=== PATIENT | male | born 1970 | race Caucasian/White ===

== ENCOUNTER 2021-07-06 00:17 | Day surgery (SDC) | payer OTHER, SELFPAY ==
[2021-06-25 12:29] VITALS: BMI 26.4
[2021-07-06 09:08] VITALS: BP 142/99; PULSE 74; RESP 20; TEMP 36.5; O2SAT 97; BMI 26.6
[2021-07-06] MEDS: LACTATED RINGERS 1,000 ML 150 ML IV CONT (09:14)
--- NOTE | 2021-07-06 09:16 | WPDANESEPPF ---
Anes - Initial Pre Proc Eval Procedure: Operation Date: 07/06/21 10:00 Proposed Procedures p Screening Colonoscopy - Mika Lopez MD Date/Time: 07/06/21 09:16 Surgeon: Mika Lopez MD Pre Op Diagnosis: neoplasm screening Patient Data Age: 51 Gender: M Height: 1.8 m Weight: 86.8 kg Last Vital Signs Temp 36.5 C 07/06/21 09:08 Pulse 74 07/06/21 09:08 Resp 20 07/06/21 09:08 BP 142/99 H 07/06/21 09:08 Pulse Ox 97 07/06/21 09:08 Allergies Allergy/AdvReac Type Severity Reaction Status Date / Time allopurinol Allergy Unknown Skin Verified 07/06/21 09:01 Reaction Home Medications Medication Instructions Recorded Confirmed Type colchicine 0.6 mg tablet 0.3 mg PO DAILY #90 tablet 06/11/21 06/25/21 Rx multivit with min-folic acid 1 tablet PO DAILY 06/25/21 06/25/21 History [Adult One Daily Multivitamin] atorvastatin 10 mg tablet See Rx Instructions .ROUTE 07/03/21 07/06/21 Rx .COMPLEX #90 tablet levothyroxine 75 mcg tablet See Rx Instructions .ROUTE 07/03/21 07/06/21 Rx .COMPLEX #90 tablet Patient hx anesthesia problems: none Family hx anesthesia problems: none Results Review: All pre-operative results and documents have been reviewed as part of the pre-operative evaluation. [facility] Surgical History Surgical History H/O umbilical hernia repair History of laparoscopic appendectomy (~01/2019) Family History Family History Father Patient's father is , Onset Age: 64 Family history of cardiovascular disease Acute myocardial infarction Family history of lung cancer Mother Acute myocardial infarction Social History Social History Smoking status: Current some day smoker Tobacco type: smokeless tobacco Smokeless tobacco user: chewing tobacco Alcohol intake: current Drinks per week: 3 Living arrangements: with family Spiritual care concerns: No Anes - Eval Final PreProcedure Day of Procedure 07/06/21 09:16 Patient weight: overweight Heart: regular rate and rhythm Lungs: clear to auscultation Airway: Mallampati scale class 1 Neurological: alert and oriented Last oral intake: >/= 8 hours ASA classification: II Emergent: no Anesthetic plan: proceed Anesthesia type and monitoring: general GIVS and standard monitoring Results Review: All pre-operative results and documents have been reviewed as part of the pre-operative evaluation. Informed Consent: The patient's anesthetic plan and its attendant risks and benefits were discussed with the patient/family/POA. Questions were solicited and answers provided to the satisfaction of the patient/family/POA.
--- NOTE | 2021-07-06 09:31 | WPDGICN ---
Assessment and Plan Assessment and plan (1) Encounter for screening colonoscopy: Code(s): Z12.11 - Encounter for screening for malignant neoplasm of colon Status: Acute Assessment and Plan: Patient presents for screening colonoscopy. Appears to be at average risk for colon polyps. GI Consult Note Consult date/time: 07/06/21 09:31 HPI: Ajay Saavedra is a 51 year old male Presents for neoplasia screening. Patient's current weight appetite and bowel movements are normal. Patient denies abdominal pain. He has had no blood in his stools. Family history is significant a daughter has Crohn's disease. There is no family history of colon polyps. Review of Systems Review of Systems: All systems reviewed & are unremarkable except as noted in HPI and below PMFSH Surgical History Surgical History H/O umbilical hernia repair History of laparoscopic appendectomy (~01/2019) Family History Family History Father Patient's father is , Onset Age: 64 Family history of cardiovascular disease Acute myocardial infarction Family history of lung cancer Mother Acute myocardial infarction Social History Social History Smoking status: Current some day smoker Tobacco type: smokeless tobacco Smokeless tobacco user: chewing tobacco Alcohol intake: current Drinks per week: 3 Living arrangements: with family Spiritual care concerns: No Meds Home Medications and Allergies Home Medications Medication Instructions Recorded Confirmed Type colchicine 0.6 mg tablet 0.3 mg PO DAILY #90 tablet 06/11/21 06/25/21 Rx multivit with min-folic acid 1 tablet PO DAILY 06/25/21 06/25/21 History [Adult One Daily Multivitamin] atorvastatin 10 mg tablet See Rx Instructions .ROUTE 07/03/21 07/06/21 Rx .COMPLEX #90 tablet levothyroxine 75 mcg tablet See Rx Instructions .ROUTE 07/03/21 07/06/21 Rx .COMPLEX #90 tablet Allergies Allergy/AdvReac Type Severity Reaction Status Date / Time allopurinol Allergy Unknown Skin Verified 07/06/21 09:01 Reaction Vital Signs Vital Signs - 24 hr 07/06/21 09:08 Temperature 97.7 F Pulse Rate 74 Respiratory Rate 20 Blood Pressure 142/99 H Pulse Oximetry 97 Exam Narrative: Physical exam reveals patient be alert. Vital signs stable. HEENT exam is unremarkable. Patient is anicteric. Lungs are clear to auscultation and percussion. Heart is without murmur or extra sounds. Abdominal exam bowel sounds are present soft nontender with no hepatosplenomegaly. digital external rectal exam is normal.
[2021-07-06 09:54] VITALS: BP 145/105; PULSE 70; RESP 20; O2SAT 98
[2021-07-06 10:04] VITALS: BP 145/100; PULSE 80; RESP 20; O2SAT 100
[2021-07-06 10:14] VITALS: BP 129/94; PULSE 73; RESP 20; O2SAT 100
== END 2021-07-06 10:20 | disposition home or self-care (01) ==
PROVIDERS: PCP Family Medicine; Visit Provider Internal Medicine Gastroenterology
PROC: 0DJD8ZZ Inspection of Lower Intestinal Tract, Via Natural or Artificial Opening Endoscopic (ICD-10-PCS; CPT 45378; principal; 2021-07-06 10:00)
DX: Z12.11 Encounter for screening for malignant neoplasm of colon (principal); K64.8 Other hemorrhoids; K57.30 Diverticulosis of large intestine without perforation or abscess without bleeding; F17.220 Nicotine dependence, chewing tobacco, uncomplicated; F17.210 Nicotine dependence, cigarettes, uncomplicated; E03.9 Hypothyroidism, unspecified
CPT/HCPCS: 45378; J2704; J7120

== ENCOUNTER → 2022-12-05 11:56 | Outpatient (CLI) | payer OTHER, SELFPAY ==
--- NOTE | ~2022-12-05 | XR_ITS ---
Right Shoulder Technique: AP and scapular Y views were obtained. Clinical History: Injury Findings: No fracture or dislocation is seen. Osseous alignment is anatomic. The glenohumeral and acr omioclavicular joint spaces are preserved. Soft tissues are unremarkable. Impression: Unremarkable right shoulder radiographs. Reviewed, dictated and finalized at [facility]. Impression: Unremarkable right shoulder radiographs.
--- NOTE | ~2022-12-05 | XR_ITS ---
Left elbow Technique: AP, oblique, and lateral views were obtained. Clinical History: Pain Findings: No acute fracture or dislocation is seen. Osseous alignment is anatomic. Joint spaces are p reserved. There is no displacement of the fat pads, and soft tissues are unremarkable. Impression: Unremarkable radiographs. Reviewed, dictated and finalized at location . Impression: Unremarkable radiographs.
== END ==
PROVIDERS: PCP Family Medicine; Visit Provider Family Medicine
DX: S49.91XA Unspecified injury of right shoulder and upper arm, initial encounter (principal); M25.522 Pain in left elbow; T14.90XA Injury, unspecified, initial encounter
CPT/HCPCS: 73030; 73080

== ENCOUNTER → 2023-03-17 13:25 | Outpatient (CLI) | payer OTHER, SELFPAY ==
--- NOTE | ~2023-03-17 | MR_ITS ---
EXAMINATION: MR shoulder RT wo con, MR humerus RT wo con DATE: 03/17/2023 14:17 INDICATION: Chronic right shoulder pain and biceps pain and weakness. TECHNIQUE: 1. Magnetic resonance imaging (MRI) of the affected shoulder was performed without intravenous contra st. Sequences included axial PD-weighted FS FSE, coronal oblique PD-weighted FS FSE, coronal oblique T2-weighted FS FSE, sagittal PD-weighted FS FSE, and sagittal T1-weighted SE. 2. MRI of the right humerus/upper arm was obtained. Sequences included axial, sagittal and coronal T1 -weighted FSE and fluid sensitive FSE STIR. A marker was placed over the site of maximal pain which i s located margins of the junction of the proximal to mid thirds of the right humerus. COMPARISON: None. FINDINGS: Coracoacromial arch: The acromion undersurface is curved in morphology (type II). The coracoacromial ligament is normal. M ild acromioclavicular osteoarthritis. Rotator cuff: The supraspinatus, infraspinatus and teres minor tendons are normal. The subscapularis tendon is norm al. Normal rotator cuff muscle bulk and signal. Biceps tendon, glenoid labrum and glenohumeral cartilage: Long head of the biceps tendon is normal. Tear at the 5:30-6:30 position of the inferior glenoid labr um. There is an additional small tear at the 10:30-11:00 position of the posterosuperior glenoid labr um with tiny para labral cyst. Cartilage along the glenoid is normal. There is mild partial-thickness cartilage loss with smooth chondral surface along the inferomedial aspect of the humeral head. Fluid: Physiologic amount of fluid in the right glenohumeral joint, biceps tendon sheath and at the right el bow. No loose osteochondral bodies. No abnormal increased fluid signal in the subacromial/subdeltoid bursa to suggest bursitis. Bones/other: Mild degenerative subarticular cystlike and edema-like signal change at the acromioclavicular joint. Otherwise normal marrow signal at the right shoulder and throughout the right upper arm the right elb ow with no fracture or pathologic marrow replacing process. There is normal muscle bulk and signal th roughout the right upper arm. IMPRESSION: 1. Minimal glenohumeral osteoarthritis with tears at the posterior superior and inferior glenoid labr um. 2. Mild acromioclavicular osteoarthritis. Reviewed, dictated and finalized at location [facility]. IMPRESSION: 1. Minimal glenohumeral osteoarthritis with tears at the posterior superior and inferior glenoid labrum. 2. Mild acromioclavicular osteoarthritis.
== END ==
PROVIDERS: PCP Family Medicine; Visit Provider Family Medicine
DX: S49.91XA Unspecified injury of right shoulder and upper arm, initial encounter (principal); M89.8X2 Other specified disorders of bone, upper arm; X58.XXXA Exposure to other specified factors, initial encounter; M19.011 Primary osteoarthritis, right shoulder
CPT/HCPCS: 73218; 73221